=== PATIENT | female | born 1970 | race Caucasian/White ===

== ENCOUNTER 2016-11-21 15:57 | Emergency (ER) | payer OTHER ==
[~2016-11-21 15:57] MED LIST: CIPRO500 MG PO
== END 2016-11-21 18:18 | disposition home or self-care (01) ==
LOC: ER1 15:57
DX: S00.83XA Contusion of other part of head, initial encounter (principal); S40.022A Contusion of left upper arm, initial encounter; S40.021A Contusion of right upper arm, initial encounter; S20.222A Contusion of left back wall of thorax, initial encounter; S20.221A Contusion of right back wall of thorax, initial encounter; F17.210 Nicotine dependence, cigarettes, uncomplicated; F41.9 Anxiety disorder, unspecified; Z88.5 Allergy status to narcotic agent; Z88.2 Allergy status to sulfonamides; Y04.0XXA Assault by unarmed brawl or fight, initial encounter; Z79.899 Other long term (current) drug therapy
CPT/HCPCS: 70486; 71020; 73030; 73080; 99284

== ENCOUNTER 2021-01-22 11:27 | Emergency (ER) | payer OTHER | END 2021-01-22 13:42 | disposition home or self-care (01) | LOC: ER1 11:27 | DX: M25.461 Effusion, right knee (principal); J44.9 Chronic obstructive pulmonary disease, unspecified; F17.200 Nicotine dependence, unspecified, uncomplicated; Z79.899 Other long term (current) drug therapy; Z88.2 Allergy status to sulfonamides; Z88.5 Allergy status to narcotic agent | CPT/HCPCS: 73564; 99283 ==

== ENCOUNTER → 2021-02-07 | Outpatient (CLI) | payer OTHER | LOC: KOH-I 09:10 | DX: S83.241A Other tear of medial meniscus, current injury, right knee, initial encounter (principal); M76.51 Patellar tendinitis, right knee; M22.41 Chondromalacia patellae, right knee | CPT/HCPCS: 73721 ==